=== PATIENT | female | born 1975 | race American Indian/Alaskan Native ===

== ENCOUNTER 2018-04-23 12:59 | Outpatient (CLI) | payer OTHER ==
[~2018-04-23 12:59] MED LIST: SYNTHROID137 MCG
== END 2018-04-23 13:02 | disposition home or self-care (01) ==
LOC: SONOGRAMA 12:59
DX: E87.0 Hyperosmolality and hypernatremia (principal); E04.8 Other specified nontoxic goiter

== ENCOUNTER 2018-07-26 09:04 | Outpatient (CLI) | payer OTHER | END 2018-07-26 09:17 | disposition home or self-care (01) | LOC: RAD 09:04 | DX: J01.81 Other acute recurrent sinusitis (principal) ==

== ENCOUNTER 2018-09-04 08:19 | Outpatient (CLI) | payer OTHER | END 2018-09-04 08:29 | disposition home or self-care (01) | LOC: TOM 08:19 | DX: H81.393 Other peripheral vertigo, bilateral (principal) ==